=== PATIENT | female | born 1990 | race Caucasian/White ===

== ENCOUNTER 2016-09-03 07:35 | Inpatient (IN) | payer BC ==
[2016-09-03] MEDS ORDERED: Nalbuphine 20 MG/1 ML Amp IVPUSH PRN (08:05)
[2016-09-03] MEDS ORDERED: Ondansetron 4 MG/2 ML SDV IVPUSH PRN (08:05)
[2016-09-03] MEDS ORDERED: Sodium Chloride 0.9% 10 ML Syringe FLUSH PRN (08:05)
[2016-09-03] MEDS ORDERED: Oxytocin/Lactated Ringers 10 UNIT/1,000 ML BAG IV SCH (08:15)
--- NOTE | 2016-09-03 10:02 | PCM.LDHP ---
L&D History of Present Illness - General Date of Service: 09/03/16 Admit Problem/Dx: Patient Status Order with Admit Dx/Problem 09/03/16 08:06 Patient Status [ADT] Routine Admission Diagnosis/Problem Admission Diagnosis/Problem Source of Information: Patient History Limitations: Reports: No Limitations - History of Present Illness Introduction:: 46-year-old 000 ADD 08/31/2016 as noted gestational age 40 weeks and 3 days GBS negative blood type O- patient received T Deppe during the patient presented to labor and delivery this morning complaining of contractions since 6 PM last night cervix 3-4 cm dilated 50% effaced and soft posterior -1 station amniotomy performed at approximately 0955 hrs. clear fluid Blood type O negative antibody screen negative on 02/02/2016 hemoglobin hematocrit 12.7 and 37.2 platelets 205,000 rubella titer indication in T RPR nonreactive patient had Gardnerella vaginalis 10-20,000 colony count on urine culture on 02/02/16 hepatitis B surface antigen negative HIV negative Chlamydia and GC negative on 06/06/16 hemoglobin and hematocrit 12.5/37.0 platelets 222, 001 hour OB glucose screen 89 as noted above group B strep negative on 08/02/16 Admit for labor and delivery patient planning epidural anesthesia Estimated gestational age 40 weeks 3 days Timing/Duration: Reports: minutes: Location, : Reports: Abdomen, Lower back Quality: Reports: Ache, Burning, Dull Pain Score: 6 Improves with: Reports: None Worsens with: Reports: None Associated Symptoms: Reports: N - Related Data Allergies/Adverse Reactions: Allergies Allergy/AdvReac Type Severity Reaction Status Date / Time shellfish derived Allergy Vomiting Verified 09/03/16 08:05 Past Medical History : 1 Para: 0 (0000) H&P Review of Systems - Review of Systems: Review Of Systems: See Below General: Reports: No Symptoms HEENT: Reports: No Symptoms Pulmonary: Reports: No Symptoms Cardiovascular: Reports: No Symptoms Gastrointestinal: Reports: No Symptoms Genitourinary: Reports: No Symptoms Musculoskeletal: Reports: No Symptoms Skin: Reports: No Symptoms Psychiatric: Reports: No Symptoms Neurological: Reports: No Symptoms Hematologic/Lymphatic: Reports: No Symptoms Immunologic: Reports: No Symptoms L&D Exam - Exam Exam: See Below - Vital Signs Weight: 197 lb - OB Specific Fundal Height In cm: 39 Contraction Duration (sec): 60 Contraction Frequency (min): 5 Contraction Intensity: Mild to Moderate Movement: Active Heart Tones: Present Heart Tones per Min: 135 Heart Rate (FHR) Variability: Moderate (6-25 bmp) Presentation: Vertex - Saeed Score Saeed Score Cervix Position: Posterior Saeed Score Consistency: Soft Saeed Score Effacement: 51-70% Saeed Score Dilation: 3-4 cm Saeed Score 's Station: -1 ,0 Saeed Score Total: 8 - Exam General: Alert, Oriented HEENT: Mucosa Moist & Mustang Neck: Supple, Trachea Midline Lungs: Clear to Auscultation, Normal Respiratory Effort Cardiovascular: Regular Rate, Regular Rhythm Abdomen: Normal Bowel Sounds, Soft, Pelvis Stable Genitourinary: Normal external exam Extremities: Normal Inspection Skin: Warm, Dry, Intact Neurological: Reflexes Equal Bilateral Psychiatric: Alert, Normal Affect, Normal Mood - Patient Data Lab Results Last 24 hrs: Laboratory Results - last 24 hr 09/03/16 Range/Units 08:15 WBC 10.10 H (3.98-10.04) K/mm3 RBC 4.56 (3.98-5.22) M/mm3 Hgb 13.7 (11.2-15.7) gm/L Hct 40.7 (34.1-44.9) % MCV 89.3 (79.4-94.8) fl MCH 30.0 (25.6-32.2) pg MCHC 33.7 (32.2-35.5) g/dl RDW Std Deviation 44.0 (36.4-46.3) fL Plt Count 213 (182-369) K/mm3 MPV 11.1 (9.4-12.3) fl Neut % (Auto) 75.3 H (34.0-71.1) % Lymph % (Auto) 17.9 L (19.3-51.7) % [place] % (Auto) 6.1 (4.7-12.5) % Eos % (Auto) 0.3 L (0.7-5.8) Baso % (Auto) 0.1 (0.1-1.2) % Neut # (Auto) 7.60 H (1.56-6.13) K/mm3 Lymph # (Auto) 1.81 (1.18-3.74) K/mm3 [place] # (Auto) 0.62 H (0.24-0.36) K/mm3 Eos # (Auto) 0.03 L (0.04-0.36) K/mm3 Baso # (Auto) 0.01 (0.01-0.08) K/mm3 Result Diagrams: 09/03/16 08:15 - Problem List (1) 40 weeks gestation of SNOMED Code(s): 40084945 ICD Code: Z3A.40 - 40 WEEKS GESTATION OF Status: Acute Current Visit: Yes Problem List Initiated/Reviewed/Updated: No Orders Last 24hrs: Active Orders 24 hr Category Date Time Status Patient Status [ADT] Routine ADT 09/03/16 08:06 Active Activity as Tolerated [RC] PFP Care 09/03/16 08:06 Active Communication Order [RC] ASDIRECTED Care 09/03/16 08:06 Active Heart Tones [RC] ASDIRECTED Care 09/03/16 08:06 Active Notify Provider [RC] PFP Care 09/03/16 08:06 Active Notify Provider [RC] PRN Care 09/03/16 08:06 Active Peripheral IV Care [RC] . DIRECTED Care 09/03/16 08:06 Active Vital Signs [RC] PER UNIT ROUTINE Care 09/03/16 08:06 Active Clear Liquid Diet [DIET] Diet 09/03/16 Breakfast Active Lactated Ringers [Ringers, Lactated] 1,000 ml Med 09/03/16 08:15 Active IV ASDIRECTED Nalbuphine [Nubain] Med 09/03/16 08:05 Active 10 mg IVPUSH Q2H PRN Ondansetron [Zofran] Med 09/03/16 08:05 Active 4 mg IVPUSH Q4H PRN Oxytocin/Lactated Ringers [Pitocin in LR 10 Units/1,000 Med 09/03/16 08:15 Active ML] 10 unit in 1,000 ml IV TITRATE Sodium Chloride 0.9% [Saline Flush] Med 09/03/16 08:05 Active 10 ml FLUSH ASDIRECTED PRN Electronic Heart Tones Ext w TOCO [WOMSER] Oth 09/03/16 08:06 Ordered Routine Electronic Heart Tones Internal [WOMSER] Per Unit Oth 09/03/16 08:06 Ordered Routine Peripheral IV Insertion Adult [OM.PC] Routine Oth 09/03/16 08:06 Ordered Resuscitation Status Routine Resus Stat 09/03/16 08:05 Ordered Medication Orders Lactated Ringer's (Ringers, Lactated) 1,000 mls @ 100 mls/hr IV ASDIRECTED LAURA Oxytocin/Lactated Ringer's (Pitocin In Lr 10 Units/1,000 Ml) 10 unit in 1,000 mls @ 500 mls/hr IV TITRATE AL[facility]A Nalbuphine HCl (Nubain) 10 mg IVPUSH Q2H PRN PRN Reason: Pain (moderate 4-6) Ondansetron HCl (Zofran) 4 mg IVPUSH Q4H PRN PRN Reason: Nausea/Vomiting Sodium Chloride (Saline Flush) 10 ml FLUSH ASDIRECTED PRN PRN Reason: Keep Vein Open Assessment/Plan Comment:: Admit for labor and delivery
[2016-09-03] MEDS: Lactated Ringers 1,000 ML IV SCH ×5 (11:35→19:14)
[2016-09-03] MEDS ORDERED: fentaNYL 100 MCG/2 ML SDV ONE (11:58)
[2016-09-03] MEDS ORDERED: ePHEDrine 50 MG/ML SDV IVPUSH PRN (12:17)
[2016-09-03] MEDS ORDERED: diphenhydrAMINE 50 MG/ML SDV IVPUSH PRN (12:17)
[2016-09-03] MEDS ORDERED: fentaNYL 100 MCG/2 ML SDV EPIDUR PRN (12:17)
--- NOTE | 2016-09-03 12:20 | PCM.PREANE ---
Preanesthetic Assessment - Anesthesia/Transfusion/Family Hx Anesthesia History: Prior Anesthesia Without Reaction Family History of Anesthesia Reaction: No Transfusion History: No Prior Transfusion(s) - Review of Systems General: No Symptoms Pulmonary: No Symptoms Cardiovascular: No Symptoms Gastrointestinal: No symptoms Neurological: No Symptoms Other: Reports: None - Physical Assessment O2 Sat by Pulse Oximetry: 96 Respiratory Rate: 16 Vital Signs: Last Vital Signs Temp 98.6 F 09/03/16 08:06 Pulse 83 09/03/16 08:06 Resp 16 09/03/16 08:06 BP 126/82 09/03/16 08:06 Pulse Ox 96 09/03/16 08:06 Height: 5 ft 7 in Weight: 89.358 kg ASA Class: 2 Mental Status: Alert & Oriented x3 Airway Class: Mallampati = 1 Dentition: Reports: Normal Dentition Thyro-Mental Finger Breadths: 3 Mouth Opening Finger Breadths: 3 ROM/Head Extension: Full Lungs: Clear to auscultation, Normal respiratory effort Cardiovascular: Regular Rate, Regular Rhythm - Lab Values: Laboratory Last Values WBC 10.10 K/mm3 (3.98-10.04) H 09/03/16 08:15 RBC 4.56 M/mm3 (3.98-5.22) 09/03/16 08:15 Hgb 13.7 gm/L (11.2-15.7) 09/03/16 08:15 Hct 40.7 % (34.1-44.9) 09/03/16 08:15 MCV 89.3 fl (79.4-94.8) 09/03/16 08:15 MCH 30.0 pg (25.6-32.2) 09/03/16 08:15 MCHC 33.7 g/dl (32.2-35.5) 09/03/16 08:15 RDW Std Deviation 44.0 fL (36.4-46.3) 09/03/16 08:15 Plt Count 213 K/mm3 (182-369) 09/03/16 08:15 MPV 11.1 fl (9.4-12.3) 09/03/16 08:15 Neut % (Auto) 75.3 % (34.0-71.1) H 09/03/16 08:15 Lymph % (Auto) 17.9 % (19.3-51.7) L 09/03/16 08:15 [place] % (Auto) 6.1 % (4.7-12.5) 09/03/16 08:15 Eos % (Auto) 0.3 (0.7-5.8) L 09/03/16 08:15 Baso % (Auto) 0.1 % (0.1-1.2) 09/03/16 08:15 Neut # (Auto) 7.60 K/mm3 (1.56-6.13) H 09/03/16 08:15 Lymph # (Auto) 1.81 K/mm3 (1.18-3.74) 09/03/16 08:15 [place] # (Auto) 0.62 K/mm3 (0.24-0.36) H 09/03/16 08:15 Eos # (Auto) 0.03 K/mm3 (0.04-0.36) L 09/03/16 08:15 Baso # (Auto) 0.01 K/mm3 (0.01-0.08) 09/03/16 08:15 - Allergies Allergies/Adverse Reactions: Allergies Allergy/AdvReac Type Severity Reaction Status Date / Time shellfish derived Allergy Vomiting Verified 09/03/16 08:05 - Blood Blood Available: No - Acknowledgements Anesthesia Type Planned: Epidural Pt an Appropriate Candidate for the Planned Anesthesia: Yes Alternatives and Risks of Anesthesia Discussed w Pt/Guardian: Yes Pt/Guardian Understands and Agrees with Anesthesia Plan: Yes PreAnesthesia Questionnaire - Past Health History Medical/Surgical History: Denies Medical/Surgical History Cardiovascular History: Reports: None Respiratory History: Reports: None JOCKEY'[employer] AGENT History: Reports: : 1 (40 weeks 3 days) Para: 0 - Past Surgical History HEENT Surgical History: Reports: Oral Surgery, Other (See Below) Other HEENT Surgeries/Procedures: [place] teeth - SUBSTANCE USE Smoking Status *Q: Never Smoker Tobacco Use Within Last Twelve Months: No Second Hand Smoke Exposure: No Days Per Week of Alcohol Use: 0 Recreational Drug Use History: No - HOME MEDS Home Medications: Home Meds Ferrous Sulfate [Iron] 325 mg PO DAILY 09/03/16 [History] PNV95/Ferrous Fumarate/FA [ Tablet] 1 tab PO DAILY 09/03/16 [History] - CURRENT (IN HOUSE) MEDS Current Meds: Current Medications Lactated Ringer's (Ringers, Lactated) 1,000 mls @ 100 mls/hr IV ASDIRECTED [facility] Last Admin: 09/03/16 11:35 Dose: 100 mls/hr Oxytocin/Lactated Ringer's (Pitocin In Lr 10 Units/1,000 Ml) 10 unit in 1,000 mls @ 500 mls/hr IV TITRATE [facility] Nalbuphine HCl (Nubain) 10 mg IVPUSH Q2H PRN PRN Reason: Pain (moderate 4-6) Ondansetron HCl (Zofran) 4 mg IVPUSH Q4H PRN PRN Reason: Nausea/Vomiting Sodium Chloride (Saline Flush) 10 ml FLUSH ASDIRECTED PRN PRN Reason: Keep Vein Open Discontinued Medications Fentanyl (Sublimaze) Confirm Administered Dose 100 mcg .ROUTE .STK-MED ONE Stop: 09/03/16 11:59
[2016-09-03] MEDS: Bupivacaine/fentaNYL/NS 100 ML Bag EPIDUR SCH ×2 (12:21→19:14)
[2016-09-03] MEDS ORDERED: Bupivacaine 0.25% 10 ML SDV ONE (12:30)
--- NOTE | 2016-09-03 21:11 | PCM.DEL ---
L & D Note - General Info Date of Service: 09/03/16 Mother's Due Date: 08/31/16 - Delivery Note Labor: spontaneous, augmented by ARM Delivery Outcome: Livebirth (Male liveborn FRANCHESCA Monday10/03/16 at 2052 hrs. over a second-degree laceration under epidural anesthesia no episiotomy Apgars 8 /9 weight 30/7/30 grams 8 pounds 3.6 ounces) Delivery Method: Spontaneous Vaginal Delivery Delivery Mode: Spontaneous Presentation: Left Occiput Anterior (FRANCHESCA) Nuchal Cord: Present (1 easily reduced over the head) Prep: Povidone-Iodine (Betadine Anesthesia Type: Epidural Amniotic Fluid Description: Clear Episiotomy Type: None Laceration: 2nd degree Suture type: other (Monocryl 2) Suture size: 3-0 Placenta: intact, spontaneous (At 4 hrs. 10/03/16) Cord: 3 vessels Estimated Blood Loss: 300 Resuscitation Needed: No [place]: Suctioned, Bulb Syringe, Stimulated, Warmed, [place] Used, Warmer Used Provider: Soham Jacome Score 1 min: 8 Score 5 min: 9 - Patient Data Vitals - most recent: Last Vital Signs Temp 98.6 F 09/03/16 08:06 Pulse 83 09/03/16 08:06 Resp 16 09/03/16 12:20 BP 126/82 09/03/16 08:06 Pulse Ox 96 09/03/16 12:20 Weight - most recent: 197 lb Lab Results last 24 hrs: Laboratory Results - last 24 hr 09/03/16 Range/Units 08:15 WBC 10.10 H (3.98-10.04) K/mm3 RBC 4.56 (3.98-5.22) M/mm3 Hgb 13.7 (11.2-15.7) gm/L Hct 40.7 (34.1-44.9) % MCV 89.3 (79.4-94.8) fl MCH 30.0 (25.6-32.2) pg MCHC 33.7 (32.2-35.5) g/dl RDW Std Deviation 44.0 (36.4-46.3) fL Plt Count 213 (182-369) K/mm3 MPV 11.1 (9.4-12.3) fl Neut % (Auto) 75.3 H (34.0-71.1) % Lymph % (Auto) 17.9 L (19.3-51.7) % [place] % (Auto) 6.1 (4.7-12.5) % Eos % (Auto) 0.3 L (0.7-5.8) Baso % (Auto) 0.1 (0.1-1.2) % Neut # (Auto) 7.60 H (1.56-6.13) K/mm3 Lymph # (Auto) 1.81 (1.18-3.74) K/mm3 [place] # (Auto) 0.62 H (0.24-0.36) K/mm3 Eos # (Auto) 0.03 L (0.04-0.36) K/mm3 Baso # (Auto) 0.01 (0.01-0.08) K/mm3 Med Orders - Current: Current Medications Diphenhydramine HCl (Benadryl) 25 mg IVPUSH Q6H PRN PRN Reason: pruritis Ephedrine Sulfate (Ephedrine Sulfate) 5 mg IVPUSH ASDIRECTED PRN PRN Reason: Hypotension Fentanyl (Sublimaze) 100 mcg EPIDUR Q3H PRN PRN Reason: Pain Fentanyl/Bupivacaine HCl (Fentanyl/Bupivacaine/Ns 2 Mcg-0.125% 100 Ml) 100 ml EPIDUR ASDIRECTED [facility] Last Admin: 09/03/16 19:14 Dose: 100 ml Lactated Ringer's (Ringers, Lactated) 1,000 mls @ 100 mls/hr IV ASDIRECTED [facility] Last Admin: 09/03/16 19:14 Dose: 100 mls/hr Oxytocin/Lactated Ringer's (Pitocin In Lr 10 Units/1,000 Ml) 10 unit in 1,000 mls @ 500 mls/hr IV TITRATE [facility] Nalbuphine HCl (Nubain) 10 mg IVPUSH Q2H PRN PRN Reason: Pain (moderate 4-6) Ondansetron HCl (Zofran) 4 mg IVPUSH Q4H PRN PRN Reason: Nausea/Vomiting Last Admin: 09/03/16 17:46 Dose: 4 mg Sodium Chloride (Saline Flush) 10 ml FLUSH ASDIRECTED PRN PRN Reason: Keep Vein Open Discontinued Medications Fentanyl (Sublimaze) Confirm Administered Dose 100 mcg .ROUTE .STK-MED ONE Stop: 09/03/16 11:59 Last Admin: 09/03/16 12:20 Dose: 100 mcg - Problem List & Annotations (1) 40 weeks gestation of SNOMED Code(s): 79870864 Code(s): Z3A.40 - 40 WEEKS GESTATION OF Status: Acute Current Visit: Yes (2) Nuchal cord without compression, delivered, current hospitalization SNOMED Code(s): 79281879 Code(s): O69.81X0 - LABOR AND DEL COMP BY CORD AROUND NECK, W/O COMPRSN, UNSP Status: Acute Current Visit: Yes (3) Second-degree perineal laceration during delivery SNOMED Code(s): 9676414 Code(s): O70.1 - SECOND DEGREE PERINEAL LACERATION DURING DELIVERY Status: Acute Current Visit: Yes - Problem List Review Problem List Initiated/Reviewed/Updated: No - My Orders Last 24 Hours: My Active Orders 09/03/16 08:05 Nalbuphine [Nubain] 10 mg IVPUSH Q2H PRN Ondansetron [Zofran] 4 mg IVPUSH Q4H PRN Sodium Chloride 0.9% [Saline Flush] 10 ml FLUSH ASDIRECTED PRN Resuscitation Status Routine 09/03/16 08:06 Patient Status [ADT] Routine Activity as Tolerated [RC] PFP Communication Order [RC] ASDIRECTED Heart Tones [RC] ASDIRECTED Notify Provider [RC] PFP Notify Provider [RC] PRN Peripheral IV Care [RC] . DIRECTED Vital Signs [RC] PER UNIT ROUTINE Electronic Heart Tones Ext w TOCO [WOMSER] Routine Electronic Heart Tones Internal [WOMSER] Per Unit Routine Peripheral IV Insertion Adult [OM.PC] Routine 09/03/16 08:15 Lactated Ringers [Ringers, Lactated] 1,000 ml IV ASDIRECTED Oxytocin/Lactated Ringers [Pitocin in LR 10 Units/1,000 ML] 10 unit in 1,000 ml IV TITRATE 09/03/16 Breakfast Clear Liquid Diet [DIET] - Plan Plan:: Admit for labor and delivery
[2016-09-03] MEDS ORDERED: Lanolin 100% Cream 7 GM Tube TOP PRN (22:29)
[2016-09-03] MEDS ORDERED: Witch Hazel Medicated Pads 100/Jar TOP PRN (22:29)
[2016-09-03] MEDS ORDERED: Acetaminophen 325 MG Tab PO PRN (22:29)
[2016-09-03] MEDS ORDERED: Benzocaine/Menthol 20%-0.5% Spray 56 GM Canister TOP PRN (22:29)
[2016-09-03] MEDS ORDERED: Acetaminophen/HYDROcodone 325-5 MG Tab PO PRN (22:29)
[2016-09-03] MEDS ORDERED: Docusate Sodium 100 MG Cap PO PRN (22:29)
[2016-09-04] MEDS: Ibuprofen 600 MG Tab PO PRN ×4 (03:52→20:31)
--- NOTE | 2016-09-04 05:45 | PCM.SN ---
- Free Text/Narrative Note: Post day 1 Afebrile, breast-feeding, no heavy vaginal bleeding, uterus involuting normally , no leg cramping. Probably home tomorrow.
[2016-09-04] MEDS: Ferrous Sulfate 325 MG Tab PO SCH ×2 (07:58→12:40)
[2016-09-04] MEDS: Prenatal Multivitamin with Calcium/Folic Acid/Iron Tab PO SCH ×2 (07:58→12:40)
--- NOTE | 2016-09-04 18:55 | PCM48HPAN ---
Post Anesthesia Note - EVALUATION WITHIN 48HRS OF ANESTHETIC Vital Signs in Normal Range: Yes Patient Participated in Evaluation: Yes Respiratory Function Stable: Yes Airway Patent: Yes Cardiovascular Function Stable: Yes Hydration Status Stable: Yes Pain Control Satisfactory: Yes Nausea and Vomiting Control Satisfactory: Yes Mental Status Recovered: Yes
[2016-09-05] MEDS: Ibuprofen 600 MG Tab PO PRN ×2 (04:56→10:02)
--- NOTE | 2016-09-05 07:17 | PCM.SN ---
- Free Text/Narrative Note: PPD#2 Afebrile, no heavy vaginal bleeding, no leg cramping. Will dismiss tomorrow.
--- NOTE | 2016-09-05 08:32 | PCM.DCSUM1 ---
Discharge Summary - Hospital Course Free Text/Narrative:: [facility] LIVE L/D Delivery Note Patient Name: ISHA BAJWA Date of : 89 Patient Status: Inpatient Attending Provider: Soham Jacome Date: 09/03/16 21:06 Initialization Date: 09/03/16 21:06 L & D Note - General Info Date of Service: 09/03/16 Mother's Due Date: 08/31/16 - Delivery Note Labor: spontaneous, augmented by ARM Delivery Outcome: Livebirth (Male liveborn FRANCHESCA Monday10/03/16 at 2052 hrs. over a second-degree laceration under epidural anesthesia no episiotomy Apgars 8 /9 weight 30/7/30 grams 8 pounds 3.6 ounces) Infant Delivery Method: Spontaneous Vaginal Delivery Infant Delivery Mode: Spontaneous Presentation: Left Occiput Anterior (FRANCHESCA) Nuchal Cord: Present (1 easily reduced over the head) Prep: Povidone-Iodine (Betadine Anesthesia Type: Epidural Amniotic Fluid Description: Clear Episiotomy Type: None Laceration: 2nd degree Suture type: other (Monocryl 2) Suture size: 3-0 Placenta: intact, spontaneous (At 4 hrs. 10/03/16) Cord: 3 vessels Estimated Blood Loss: 300 Resuscitation Needed: No Story: Suctioned, Bulb Syringe, Stimulated, Warmed, [place] Used, Warmer Used Provider: Soham Jaocme Score 1 min: 8 Score 5 min: 9 - Patient Data Vitals - most recent: Last Vital Signs Temp 98.6 F 09/03/16 08:06 Pulse 83 09/03/16 08:06 Resp 16 09/03/16 12:20 BP 126/82 09/03/16 08:06 Pulse Ox 96 09/03/16 12:20 Weight - most recent: 197 lb Lab Results last 24 hrs: Laboratory Results - last 24 hr 09/03/16 Range/Units 08:15 WBC 10.10 H (3.98-10.04) K/mm3 RBC 4.56 (3.98-5.22) M/mm3 Hgb 13.7 (11.2-15.7) gm/L Hct 40.7 (34.1-44.9) % MCV 89.3 (79.4-94.8) fl MCH 30.0 (25.6-32.2) pg MCHC 33.7 (32.2-35.5) g/dl RDW Std Deviation 44.0 (36.4-46.3) fL Plt Count 213 (182-369) K/mm3 MPV 11.1 (9.4-12.3) fl Neut % (Auto) 75.3 H (34.0-71.1) % Lymph % (Auto) 17.9 L (19.3-51.7) % [place] % (Auto) 6.1 (4.7-12.5) % Eos % (Auto) 0.3 L (0.7-5.8) Baso % (Auto) 0.1 (0.1-1.2) % Neut # (Auto) 7.60 H (1.56-6.13) K/mm3 Lymph # (Auto) 1.81 (1.18-3.74) K/mm3 [place] # (Auto) 0.62 H (0.24-0.36) K/mm3 Eos # (Auto) 0.03 L (0.04-0.36) K/mm3 Baso # (Auto) 0.01 (0.01-0.08) K/mm3 Med Orders - Current: Current Medications Diphenhydramine HCl (Benadryl) 25 mg IVPUSH Q6H PRN PRN Reason: pruritis Ephedrine Sulfate (Ephedrine Sulfate) 5 mg IVPUSH ASDIRECTED PRN PRN Reason: Hypotension Fentanyl (Sublimaze) 100 mcg EPIDUR Q3H PRN PRN Reason: Pain Fentanyl/Bupivacaine HCl (Fentanyl/Bupivacaine/Ns 2 Mcg-0.125% 100 Ml) 100 ml EPIDUR ASDIRECTED [facility] Last Admin: 09/03/16 19:14 Dose: 100 ml Lactated Ringer's (Ringers, Lactated) 1,000 mls @ 100 mls/hr IV ASDIRECTED [facility] Last Admin: 09/03/16 19:14 Dose: 100 mls/hr Oxytocin/Lactated Ringer's (Pitocin In Lr 10 Units/1,000 Ml) 10 unit in 1,000 mls @ 500 mls/hr IV TITRATE LAURA Nalbuphine HCl (Nubain) 10 mg IVPUSH Q2H PRN PRN Reason: Pain (moderate 4-6) Ondansetron HCl (Zofran) 4 mg IVPUSH Q4H PRN PRN Reason: Nausea/Vomiting Last Admin: 09/03/16 17:46 Dose: 4 mg Sodium Chloride (Saline Flush) 10 ml FLUSH ASDIRECTED PRN PRN Reason: Keep Vein Open Discontinued Medications Fentanyl (Sublimaze) Confirm Administered Dose 100 mcg .ROUTE .STK-MED ONE Stop: 09/03/16 11:59 Last Admin: 09/03/16 12:20 Dose: 100 mcg - Problem List & Annotations (1) 40 weeks gestation of SNOMED Code(s): 89945664 Code(s): Z3A.40 - 40 WEEKS GESTATION OF Status: Acute Current Visit: Yes (2) Nuchal cord without compression, delivered, current hospitalization SNOMED Code(s): 62539814 Code(s): O69.81X0 - LABOR AND DEL COMP BY CORD AROUND NECK, W/O COMPRSN, UNSP Status: Acute Current Visit: Yes (3) Second-degree perineal laceration during delivery SNOMED Code(s): 0092680 Code(s): O70.1 - SECOND DEGREE PERINEAL LACERATION DURING DELIVERY Status: Acute Current Visit: Yes - Problem List Review Problem List Initiated/Reviewed/Updated: No - My Orders Last 24 Hours: My Active Orders 09/03/16 08:05 Nalbuphine [Nubain] 10 mg IVPUSH Q2H PRN Ondansetron [Zofran] 4 mg IVPUSH Q4H PRN Sodium Chloride 0.9% [Saline Flush] 10 ml FLUSH ASDIRECTED PRN Resuscitation Status Routine 09/03/16 08:06 Patient Status [ADT] Routine Activity as Tolerated [RC] PFP Communication Order [RC] ASDIRECTED Heart Tones [RC] ASDIRECTED Notify Provider [RC] PFP Notify Provider [RC] PRN Peripheral IV Care [RC] . DIRECTED Vital Signs [RC] PER UNIT ROUTINE Electronic Heart Tones Ext w TOCO [WOMSER] Routine Electronic Heart Tones Internal [WOMSER] Per Unit Routine Peripheral IV Insertion Adult [OM.PC] Routine 09/03/16 08:15 Lactated Ringers [Ringers, Lactated] 1,000 ml IV ASDIRECTED Oxytocin/Lactated Ringers [Pitocin in LR 10 Units/1,000 ML] 10 unit in 1,000 ml IV TITRATE 09/03/16 Breakfast Clear Liquid Diet [DIET] - Plan Plan:: Admit for labor and delivery HPI Initial Comments: [facility] LIVE L/D Delivery Note Patient Name: ISHA BAJWA Date of : 89 Patient Status: Inpatient Attending Provider: Soham Jacome Date: 09/03/16 21:06 Initialization Date: 09/03/16 21:06 L & D Note - General Info Date of Service: 09/03/16 Mother's Due Date: 08/31/16 - Delivery Note Labor: spontaneous, augmented by ARM Delivery Outcome: Livebirth (Male liveborn FRANCHESCA Monday10/03/16 at 2 hrs. over a second-degree laceration under epidural anesthesia no episiotomy Apgars 8 /9 weight 30/7/30 grams 8 pounds 3.6 ounces) Infant Delivery Method: Spontaneous Vaginal Delivery Delivery Mode: Spontaneous Presentation: Left Occiput Anterior (FRANCHESCA) Nuchal Cord: Present (1 easily reduced over the head) Prep: Povidone-Iodine (Betadine Anesthesia Type: Epidural Amniotic Fluid Description: Clear Episiotomy Type: None Laceration: 2nd degree Suture type: other (Monocryl 2) Suture size: 3-0 Placenta: intact, spontaneous (At 4 hrs. 10/03/16) Cord: 3 vessels Estimated Blood Loss: 300 Resuscitation Needed: No : Suctioned, Bulb Syringe, Stimulated, Warmed, [place] Used, Warmer Used Provider: Soham Jacome Score 1 min: 8 Score 5 min: 9 - Patient Data Vitals - most recent: Last Vital Signs Temp 98.6 F 09/03/16 08:06 Pulse 83 09/03/16 08:06 Resp 16 09/03/16 12:20 BP 126/82 09/03/16 08:06 Pulse Ox 96 09/03/16 12:20 Weight - most recent: 197 lb Lab Results last 24 hrs: Laboratory Results - last 24 hr 09/03/16 Range/Units 08:15 WBC 10.10 H (3.98-10.04) K/mm3 RBC 4.56 (3.98-5.22) M/mm3 Hgb 13.7 (11.2-15.7) gm/L Hct 40.7 (34.1-44.9) % MCV 89.3 (79.4-94.8) fl MCH 30.0 (25.6-32.2) pg MCHC 33.7 (32.2-35.5) g/dl RDW Std Deviation 44.0 (36.4-46.3) fL Plt Count 213 (182-369) K/mm3 MPV 11.1 (9.4-12.3) fl Neut % (Auto) 75.3 H (34.0-71.1) % Lymph % (Auto) 17.9 L (19.3-51.7) % [place] % (Auto) 6.1 (4.7-12.5) % Eos % (Auto) 0.3 L (0.7-5.8) Baso % (Auto) 0.1 (0.1-1.2) % Neut # (Auto) 7.60 H (1.56-6.13) K/mm3 Lymph # (Auto) 1.81 (1.18-3.74) K/mm3 [place] # (Auto) 0.62 H (0.24-0.36) K/mm3 Eos # (Auto) 0.03 L (0.04-0.36) K/mm3 Baso # (Auto) 0.01 (0.01-0.08) K/mm3 Med Orders - Current: Current Medications Diphenhydramine HCl (Benadryl) 25 mg IVPUSH Q6H PRN PRN Reason: pruritis Ephedrine Sulfate (Ephedrine Sulfate) 5 mg IVPUSH ASDIRECTED PRN PRN Reason: Hypotension Fentanyl (Sublimaze) 100 mcg EPIDUR Q3H PRN PRN Reason: Pain Fentanyl/Bupivacaine HCl (Fentanyl/Bupivacaine/Ns 2 Mcg-0.125% 100 Ml) 100 ml EPIDUR ASDIRECTED [facility] Last Admin: 09/03/16 19:14 Dose: 100 ml Lactated Ringer's (Ringers, Lactated) 1,000 mls @ 100 mls/hr IV ASDIRECTED [facility] Last Admin: 09/03/16 19:14 Dose: 100 mls/hr Oxytocin/Lactated Ringer's (Pitocin In Lr 10 Units/1,000 Ml) 10 unit in 1,000 mls @ 500 mls/hr IV TITRATE LAURA Nalbuphine HCl (Nubain) 10 mg IVPUSH Q2H PRN PRN Reason: Pain (moderate 4-6) Ondansetron HCl (Zofran) 4 mg IVPUSH Q4H PRN PRN Reason: Nausea/Vomiting Last Admin: 09/03/16 17:46 Dose: 4 mg Sodium Chloride (Saline Flush) 10 ml FLUSH ASDIRECTED PRN PRN Reason: Keep Vein Open Discontinued Medications Fentanyl (Sublimaze) Confirm Administered Dose 100 mcg .ROUTE .STK-MED ONE Stop: 09/03/16 11:59 Last Admin: 09/03/16 12:20 Dose: 100 mcg - Problem List & Annotations (1) 40 weeks gestation of SNOMED Code(s): 93358693 Code(s): Z3A.40 - 40 WEEKS GESTATION OF Status: Acute Current Visit: Yes (2) Nuchal cord without compression, delivered, current hospitalization SNOMED Code(s): 34656938 Code(s): O69.81X0 - LABOR AND DEL COMP BY CORD AROUND NECK, W/O COMPRSN, UNSP Status: Acute Current Visit: Yes (3) Second-degree perineal laceration during delivery SNOMED Code(s): 9543449 Code(s): O70.1 - SECOND DEGREE PERINEAL LACERATION DURING DELIVERY Status: Acute Current Visit: Yes - Problem List Review Problem List Initiated/Reviewed/Updated: No - My Orders Last 24 Hours: My Active Orders 09/03/16 08:05 Nalbuphine [Nubain] 10 mg IVPUSH Q2H PRN Ondansetron [Zofran] 4 mg IVPUSH Q4H PRN Sodium Chloride 0.9% [Saline Flush] 10 ml FLUSH ASDIRECTED PRN Resuscitation Status Routine 09/03/16 08:06 Patient Status [ADT] Routine Activity as Tolerated [RC] PFP Communication Order [RC] ASDIRECTED Heart Tones [RC] ASDIRECTED Notify Provider [RC] PFP Notify Provider [RC] PRN Peripheral IV Care [RC] . DIRECTED Vital Signs [RC] PER UNIT ROUTINE Electronic Heart Tones Ext w TOCO [WOMSER] Routine Electronic Heart Tones Internal [WOMSER] Per Unit Routine Peripheral IV Insertion Adult [OM.PC] Routine 09/03/16 08:15 Lactated Ringers [Ringers, Lactated] 1,000 ml IV ASDIRECTED Oxytocin/Lactated Ringers [Pitocin in LR 10 Units/1,000 ML] 10 unit in 1,000 ml IV TITRATE 09/03/16 Breakfast Clear Liquid Diet [DIET] - Plan Plan:: Admit for labor and delivery Brief History: [facility] LIVE . L/D Delivery Note. Patient Name: ISHA BAJWA Record Number: [id number]. Date of : Patient Status: Inpatient. Attending Provider: Soham Jacomeount Number: [id number]. Date: 09/03/16 21:06Initialization Date: 09/03/16 21:06. L & D Note. - General Info. Date of Service: 09/03/16. Mother's Due Date: 08/31/16. - Delivery Note. Labor: spontaneous, augmented by ARM. Delivery Outcome: Livebirth (Male liveborn FRANCHESCA Monday10/03/16 at 2052 hrs. over a second-degree laceration under epidural anesthesia no episiotomy Apgars 8/9 weight 30/7/30 grams 8 pounds 3.6 ounces). Infant Delivery Method: Spontaneous Vaginal Delivery. Delivery Mode: Spontaneous. Presentation: Left Occiput Anterior (FRANCHESCA). Nuchal Cord: Present (1 easily reduced over the head) . Prep: Povidone-Iodine (Betadine. Anesthesia Type: Epidural. Amniotic Fluid Description: Clear. Episiotomy Type: None. Laceration: 2nd degree. Suture type: other (Monocryl 2). Suture size: 3-0. Placenta: intact, spontaneous ( At 2054 hrs. 10/03/16). Cord: 3 vessels. Estimated Blood Loss: 300. Resuscitation Needed: No. Story: Suctioned, Bulb Syringe, Stimulated, Warmed , [place] Used, Warmer Used. Provider: Soham Jacome. Score 1 min: 8. Score 5 min: 9. - Patient Data. Vitals - most recent: Last Vital Signs. Temp 98.6 F 09/03/16 08:06. Pulse 83 09/03/16 08:06. Resp 16 09/03/16 12:20. BP 126/82 09/03/16 08:06. Pulse Ox 96 09/03/16 12: 20. Weight - most recent: 197 lb. Lab Results last 24 hrs: Laboratory Results - last 24 hr. 09/03/16Range/Units. 08:15. WBC 10.10 H (3.98-10.04) K /mm3. RBC 4.56 (3.98-5.22) M/mm3. Hgb 13.7 (11.2-15.7) gm/L. Hct 40.7 (34.1 -44.9) %. MCV 89.3 (79.4-94.8) fl. MCH 30.0 (25.6-32.2) pg. MCHC 33.7 ( 32.2-35.5) g/dl. RDW Std Deviation 44.0 (36.4-46.3) fL. Plt Count 213 (182- 369) K/mm3. MPV 11.1 (9.4-12.3) fl. Neut % (Auto) 75.3 H (34.0-71.1) %. Lymph % (Auto) 17.9 L (19.3-51.7) %. [place] % (Auto) 6.1 (4.7-12.5) %. Eos % ( Auto) 0.3 L (0.7-5.8). Baso % (Auto) 0.1 (0.1-1.2) %. Neut # (Auto) 7.60 H ( 1.56-6.13) K/mm3. Lymph # (Auto) 1.81 (1.18-3.74) K/mm3. [place] # (Auto) 0.62 H (0.24-0.36) K/mm3. Eos # (Auto) 0.03 L (0.04-0.36) K/mm3. Baso # (Auto) 0.01 (0.01-0.08) K/mm3. Med Orders - Current: Current Medications. Diphenhydramine HCl (Benadryl) 25 mg IVPUSH Q6H PRN. PRN Reason: pruritis. Ephedrine Sulfate (Ephedrine Sulfate) 5 mg IVPUSH ASDIRECTED PRN. PRN Reason: Hypotension. Fentanyl (Sublimaze) 100 mcg EPIDUR Q3H PRN. PRN Reason: Pain. Fentanyl/Bupivacaine HCl (Fentanyl/Bupivacaine/Ns 2 Mcg-0.125% 100 Ml) 100 ml EPIDUR ASDIRECTED [facility]. Last Admin: 09/03/16 19:14 Dose: 100 ml. Lactated Ringer's (Ringers, Lactated) 1,000 mls @ 100 mls/hr IV ASDIRECTED [facility]. Last Admin: 09/03/16 19:14 Dose: 100 mls/hr. Oxytocin/Lactated Ringer's (Pitocin In Lr 10 Units/1,000 Ml) 10 unit in 1,000 mls @ 500 mls/hr IV TITRATE LAURA. Nalbuphine HCl (Nubain) 10 mg IVPUSH Q2H PRN. PRN Reason: Pain (moderate 4-6) . Ondansetron HCl (Zofran) 4 mg IVPUSH Q4H PRN. PRN Reason: Nausea/Vomiting. Last Admin: 09/03/16 17:46 Dose: 4 mg. Sodium Chloride (Saline Flush) 10 ml FLUSH ASDIRECTED PRN. PRN Reason: Keep Vein Open. Discontinued Medications. Fentanyl (Sublimaze) Confirm Administered Dose 100 mcg .ROUTE .STK -MED ONE. Stop: 09/03/16 11:59. Last Admin: 09/03/16 12:20 Dose: 100 mcg. - Problem List & Annotations. (1) 40 weeks gestation of . SNOMED Code(s ): 29617967. Code(s): Z3A.40 - 40 WEEKS GESTATION OF Status: Acute Current Visit: Yes. (2) Nuchal cord without compression, delivered, current hospitalization. SNOMED Code(s): 90720526. Code(s): O69.81X0 - LABOR AND DEL COMP BY CORD AROUND NECK, W/O COMPRSN, UNSP Status: Acute Current Visit: Yes. (3) Second-degree perineal laceration during delivery. SNOMED Code(s): 7550254. Code(s): O70.1 - SECOND DEGREE PERINEAL LACERATION DURING DELIVERY Status: Acute Current Visit: Yes. - Problem List Review. Problem List Initiated/Reviewed/Updated: No. - My Orders. Last 24 Hours: My Active Orders. 09/03/16 08:05. Nalbuphine [Nubain] 10 mg IVPUSH Q2H PRN. Ondansetron [Zofran] 4 mg IVPUSH Q4H PRN. Sodium Chloride 0.9% [Saline Flush ] 10 ml FLUSH ASDIRECTED PRN. Resuscitation Status Routine. 09/03/16 08:06. Patient Status [ADT] Routine. Activity as Tolerated [RC] PFP. Communication Order [RC] ASDIRECTED. Heart Tones [RC] ASDIRECTED. Notify Provider [RC ] PFP. Notify Provider [RC] PRN. Peripheral IV Care [RC] . DIRECTED. Vital Signs [RC] PER UNIT ROUTINE. Electronic Heart Tones Ext w TOCO [WOMSER] Routine. Electronic Heart Tones Internal [WOMSER] Per Unit Routine. Peripheral IV Insertion Adult [OM.PC] Routine. 09/03/16 08:15. Lactated Ringers [Ringers, Lactated] 1,000 ml IV ASDIRECTED. Oxytocin/Lactated Ringers [ Pitocin in LR 10 Units/1,000 ML] 10 unit in 1,000 ml IV TITRATE. 09/03/16 Breakfast. Clear Liquid Diet [DIET]. - Plan. Plan:: Admit for labor and delivery - Discharge Data Discharge Date: 09/05/16 Discharge Disposition: Home, Self-Care 01 Condition: Good - Discharge Diagnosis/Problem(s) (1) 40 weeks gestation of SNOMED Code(s): 78182255 ICD Code: Z3A.40 - 40 WEEKS GESTATION OF Status: Acute Current Visit: Yes (2) Nuchal cord without compression, delivered, current hospitalization SNOMED Code(s): 89771765 ICD Code: O69.81X0 - LABOR AND DEL COMP BY CORD AROUND NECK, W/O COMPRSN, UNSP Status: Acute Current Visit: Yes (3) Second-degree perineal laceration during delivery SNOMED Code(s): 8940371 ICD Code: O70.1 - SECOND DEGREE PERINEAL LACERATION DURING DELIVERY Status : Acute Current Visit: Yes - Patient Summary/Data Complications: none Consults: none Hospital Course: uneventful - Patient Instructions Diet: Heart Healthy Diet Driving: Do Not Drive (x48 hours) Showering/Bathing: July Shower Notify Provider of: Fever, Increased Pain, Swelling and Redness, Drainage, Nausea and/or Vomiting - Discharge Plan Home Medications: Home Meds Ferrous Sulfate [Iron] 325 mg PO DAILY 09/03/16 [History] PNV95/Ferrous Fumarate/FA [ Tablet] 1 tab PO DAILY 09/03/16 [History] Acetaminophen [Tylenol] 650 mg PO Q6H PRN #0 tablet 09/05/16 [Rx] Docusate Sodium [Colace] 100 mg PO BID PRN #0 cap 09/05/16 [Rx] Ibuprofen [IJD: Ibuprofen] 600 mg PO Q6H PRN #0 tablet 09/05/16 [Rx] Witkorin Viviana [Tucks] 1 pad TOP ASDIRECTED PRN #0 pad 09/05/16 [Rx] Referrals: Soham Jacome MD [Physician] - (6 weeks) - Discharge Summary/Plan Comment DC Time >30 min.: No - Patient Data Vitals - Most Recent: Last Vital Signs Temp 97.3 F 09/05/16 04:25 Pulse 73 09/05/16 04:25 Resp 13 09/05/16 04:25 BP 112/79 09/05/16 04:25 Pulse Ox 99 09/05/16 04:25 Weight - Most Recent: 197 lb Med Orders - Current: Current Medications Acetaminophen (Tylenol) 650 mg PO Q4H PRN PRN Reason: mild pain or fever Hydrocodone Bitart/Acetaminophen ([place] 325-5 Mg) 2 tab PO Q4H PRN PRN Reason: Pain (moderate 4-6) Benzocaine/Menthol (Dermoplast Pain Relief [place]) 0 gm TOP ASDIRECTED PRN PRN Reason: Perineal Comfort Measure Last Admin: 09/03/16 23:07 Dose: 1 canister Docusate Sodium (Colace) 100 mg PO BID PRN PRN Reason: Constipation Last Admin: 09/04/16 07:58 Dose: 100 mg Emollient Ointment (Lansinoh Hpa) 0 gm TOP ASDIRECTED PRN PRN Reason: Sore Nipples Ferrous Sulfate (Ferrous Sulfate) 325 mg PO DAILY [facility] Last Admin: 09/04/16 12:40 Dose: Not Given Ibuprofen (Motrin) 600 mg PO Q4H PRN PRN Reason: Mild pain or fever Last Admin: 09/05/16 04:56 Dose: 600 mg Prenat Multivit/Pike/Iron/Folic Ac ( Plus Iron) 1 each PO DAILY [facility] Last Admin: 09/04/16 12:40 Dose: Not Given Phan Michelle (Tucks) 1 pad TOP ASDIRECTED PRN PRN Reason: Hemorrhoid pain Last Admin: 09/03/16 23:07 Dose: 1 container Discontinued Medications Diphenhydramine HCl (Benadryl) 25 mg IVPUSH Q6H PRN PRN Reason: pruritis Ephedrine Sulfate (Ephedrine Sulfate) 5 mg IVPUSH ASDIRECTED PRN PRN Reason: Hypotension Fentanyl (Sublimaze) Confirm Administered Dose 100 mcg .ROUTE .[facility] ONE Stop: 09/03/16 11:59 Last Admin: 09/03/16 12:20 Dose: 100 mcg Fentanyl (Sublimaze) 100 mcg EPIDUR Q3H PRN PRN Reason: Pain Fentanyl/Bupivacaine HCl (Fentanyl/Bupivacaine/Ns 2 Mcg-0.125% 100 Ml) 100 ml EPIDUR ASDIRECTED [facility] Last Admin: 09/03/16 19:14 Dose: 100 ml Lactated Ringer's (Ringers, Lactated) 1,000 mls @ 100 mls/hr IV ASDIRECTED [facility] Last Admin: 09/03/16 19:14 Dose: 100 mls/hr Oxytocin/Lactated Ringer's (Pitocin In Lr 10 Units/1,000 Ml) 10 unit in 1,000 mls @ 500 mls/hr IV TITRATE [facility] Last Admin: 09/03/16 20:51 Dose: 500 mls/hr Nalbuphine HCl (Nubain) 10 mg IVPUSH Q2H PRN PRN Reason: Pain (moderate 4-6) Ondansetron HCl (Zofran) 4 mg IVPUSH Q4H PRN PRN Reason: Nausea/Vomiting Last Admin: 09/03/16 17:46 Dose: 4 mg Sodium Chloride (Saline Flush) 10 ml FLUSH ASDIRECTED PRN PRN Reason: Keep Vein Open *Q Meaningful Use (DIS) - VTE *Q VTE Criteria *Q: - Stroke *Q Stroke Criteria *Q: - AMI *Q AMI Criteria *Q:
[2016-09-05 09:51] VITALS: BP 114/74
[2016-09-05] MEDS: Prenatal Multivitamin with Calcium/Folic Acid/Iron Tab PO SCH (09:51)
[2016-09-05] MEDS: Ferrous Sulfate 325 MG Tab PO SCH (09:51)
== END 2016-09-05 10:05 | disposition home or self-care (01) | DRG 560 ==
LOC: JD.OBCHECK 07:35 → JD.OB 07:36 → JD.OBCHECK 08:06 → JD.OB 08:06 → OBSVTOIN 20:51
PROVIDERS: ADMIT Obstetrics & Gynecology; ATTEND Obstetrics & Gynecology
PROC: 10E0XZZ Delivery of Products of Conception, External Approach (ICD-10-PCS; principal; 2016-09-03)
PROC: 0KQM0ZZ Repair Perineum Muscle, Open Approach (ICD-10-PCS; 2016-09-03)
PROC: 10907ZC Drainage of Amniotic Fluid, Therapeutic from Products of Conception, Via Natural or Artificial Opening (ICD-10-PCS; 2016-09-03)
PROC: 00HU33Z Insertion of Infusion Device into Spinal Canal, Percutaneous Approach (ICD-10-PCS; 2016-09-03)
PROC: 3E0R3CZ (ICD-10-PCS; 2016-09-03)
DX: O70.1 Second degree perineal laceration during delivery (principal); O69.81X0 Labor and delivery complicated by cord around neck, without compression, not applicable or unspecified; Z3A.40 40 weeks gestation of pregnancy; Z37.0 Single live birth; Z91.013 Allergy to seafood
CPT/HCPCS: 01967; 36415; 85025; A9270-GY; J2405; J2590; J3010; J7120